=== PATIENT | male | born 1980 | race African-American/Black ===

== ENCOUNTER 2021-10-03 20:53 | Emergency (ER) | payer SELFPAY ==
[~2021-10-03] VITALS: Ht 160 cm; Wt 77.3 kg
[2021-10-03 22:00] VITALS: BP 114/82
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
== END 2021-10-04 00:05 | disposition home or self-care (01) ==
LOC: ER 20:53
DX: S00.83XA Contusion of other part of head, initial encounter (principal); S60.222A Contusion of left hand, initial encounter; S60.221A Contusion of right hand, initial encounter; S80.12XA Contusion of left lower leg, initial encounter; S80.11XA Contusion of right lower leg, initial encounter; Y08.89XA Assault by other specified means, initial encounter; Y93.89 Activity, other specified; Y92.89 Other specified places as the place of occurrence of the external cause; Y99.8 Other external cause status
CPT/HCPCS: 70450; 72125; 73130; 99284-25